=== PATIENT | male | born 1970 | race Asian ===

== ENCOUNTER 2021-06-17 00:09 | Day surgery (SDC) | payer OTHER, SELFPAY ==
[2021-06-16 09:58] VITALS: BMI 23.4
--- NOTE | 2021-06-17 10:11 | P.PNAN_ITS ---
Anes - Initial Pre Proc Eval Procedure: Operation Date: 06/17/21 11:30 Proposed Procedures p Screening Colonoscopy - Osbaldo Chinchilla MD Date/Time: 06/17/21 10:11 Surgeon: Osbaldo Chinchilla MD Pre Op Diagnosis: neoplasm screening Patient Data Age: 50 Gender: M Height: 1.63 m Weight: 62 kg Allergies Allergy/AdvReac Type Severity Reaction Status Date / Time lisinopril Allergy Intermediate Cough Verified 06/16/21 09:59 Home Medications Medication Instructions Recorded Confirmed Type Daily Fiber 5 cap PO DAILY 06/16/21 06/16/21 History Ginkoba 1 cap PO DAILY 06/16/21 06/16/21 History manisha (Zingiber officinalis) 2 cap PO DAILY 06/16/21 06/16/21 History ginseng 200 mg PO DAILY 06/16/21 06/16/21 History losartan 100 mg PO DAILY 06/16/21 06/16/21 History omega 4-ixb-egq-fish oil [Fish Oil] 2 cap PO DAILY 06/16/21 06/16/21 History sildenafil 100 mg PO PRN PRN 06/16/21 06/16/21 History Results Review: All pre-operative results and documents have been reviewed as part of the pre-operative evaluation. [facility] Past Medical History Medical History (Updated 06/17/21 @ 10:12 by Joesph Irby DO) Hypertension Social History Social History Smoking packs per day: 0.5 Smoking cigarettes per day: 10.0 Years smoked: 20 Smoking pack-years: 10.00 Smoking status: Former smoker Tobacco type: cigarettes Alcohol intake: current Drinks per week: 14 Alcohol use details: BEERS Substance use: never Substance use type: does not use Living arrangements: with family Spiritual care concerns: No Anes - Eval Final PreProcedure Day of Procedure 06/17/21 10:11 Patient weight: normal Heart: regular rate and rhythm Lungs: clear to auscultation and normal air movement Airway: Mallampati scale class II Neurological: alert and oriented Last oral intake: >/= 8 hours ASA classification: III Emergent: no Anesthetic plan: proceed Anesthesia type and monitoring: general GIVS and standard monitoring Results Review: All pre-operative results and documents have been reviewed as part of the pre-operative evaluation. Informed Consent: The patient's anesthetic plan and its attendant risks and benefits were discussed with the patient/family/POA. Questions were solicited and answers provided to the satisfaction of the patient/family/POA.
[2021-06-17 10:16] VITALS: BP 133/94; PULSE 84; RESP 18; TEMP 35.9; O2SAT 98
[2021-06-17] MEDS: LACTATED RINGERS 1,000 ML 150 ML IV CONT (10:20)
--- NOTE | 2021-06-17 10:30 | WPDGICN ---
Assessment and Plan Assessment and plan (1) Encounter for screening colonoscopy: Code(s): Z12.11 - Encounter for screening for malignant neoplasm of colon Status: Acute Assessment and Plan: Patient presents today for screening colonoscopy. Appears to be at average risk for colon polyps. High-fiber diet is advised because of history of emergence. GI Consult Note Consult date/time: 06/17/21 10:30 HPI: Rubio Arguelles is a 50 year old male Presents for screening colonoscopy. Patient reports his current weight appetite min bowel movements are normal. He denies abdominal pain. He has had no bleeding. Patient reports colonoscopy 15 years ago because of bleeding revealed that he had hemorrhoids. Patient has very infrequent bright red blood per rectum attributed to hemorrhoids. He reports that his bowel habits are normal. Family history is noncontributory. Patient presents today for neoplasia screening. Review of Systems Review of Systems: All systems reviewed & are unremarkable except as noted in HPI and below PMFSH Past Medical History Medical History (Updated 06/17/21 @ 10:31 by Osbaldo Chinchilla MD) Hypertension Social History Social History Smoking packs per day: 0.5 Smoking cigarettes per day: 10.0 Years smoked: 20 Smoking pack-years: 10.00 Smoking status: Former smoker Tobacco type: cigarettes Alcohol intake: current Drinks per week: 14 Alcohol use details: BEERS Substance use: never Substance use type: does not use Living arrangements: with family Spiritual care concerns: No Meds Home Medications and Allergies Home Medications Medication Instructions Recorded Confirmed Type Daily Fiber 5 cap PO DAILY 06/16/21 06/17/21 History Ginkoba 1 cap PO DAILY 06/16/21 06/17/21 History manisha (Zingiber officinalis) 2 cap PO DAILY 06/16/21 06/17/21 History ginseng 200 mg PO DAILY 06/16/21 06/17/21 History losartan 100 mg PO DAILY 06/16/21 06/17/21 History omega 1-bmj-sua-fish oil [Fish Oil] 2 cap PO DAILY 06/16/21 06/17/21 History sildenafil 100 mg PO PRN PRN 06/16/21 06/17/21 History Allergies Allergy/AdvReac Type Severity Reaction Status Date / Time lisinopril Allergy Intermediate Cough Verified 06/17/21 10:15 Vital Signs Vital Signs - 24 hr 06/17/21 10:16 Temperature 96.7 F L Pulse Rate 84 Respiratory Rate 18 Blood Pressure 133/94 H Pulse Oximetry 98 Exam Narrative: Physical exam reveals patient to be alert. Vital signs stable. HEENT exam is unremarkable. Patient is anicteric. Lungs are clear to auscultation and percussion. Heart is without murmur or extra sounds. Abdominal exam bowel sounds are present soft nontender with no organomegaly. Digital external rectal exam is normal.
--- NOTE | 2021-06-17 10:42 | P.PNAN_ITS ---
Anes - Initial Pre Proc Eval Procedure: Operation Date: 06/17/21 11:30 Proposed Procedures p Screening Colonoscopy - Osbaldo Chinchilla MD Date/Time: 06/17/21 10:42 Surgeon: Osbaldo Chinchilla MD Pre Op Diagnosis: neoplasm screening Patient Data Age: 50 Gender: M Height: 1.63 m Weight: 61.1 kg Last Vital Signs Temp 96.7 F L 06/17/21 10:16 Pulse 84 06/17/21 10:16 Resp 18 06/17/21 10:16 BP 133/94 H 06/17/21 10:16 Pulse Ox 98 06/17/21 10:16 Allergies Allergy/AdvReac Type Severity Reaction Status Date / Time lisinopril Allergy Intermediate Cough Verified 06/17/21 10:15 Home Medications Medication Instructions Recorded Confirmed Type Daily Fiber 5 cap PO DAILY 06/16/21 06/17/21 History Ginkoba 1 cap PO DAILY 06/16/21 06/17/21 History manisha (Zingiber officinalis) 2 cap PO DAILY 06/16/21 06/17/21 History ginseng 200 mg PO DAILY 06/16/21 06/17/21 History losartan 100 mg PO DAILY 06/16/21 06/17/21 History omega 5-yjt-vys-fish oil [Fish Oil] 2 cap PO DAILY 06/16/21 06/17/21 History sildenafil 100 mg PO PRN PRN 06/16/21 06/17/21 History Patient hx anesthesia problems: none Family hx anesthesia problems: none Results Review: All pre-operative results and documents have been reviewed as part of the pre-operative evaluation. [facility] Past Medical History Medical History (Updated 06/17/21 @ 10:31 by Osbaldo Chinchilla MD) Hypertension Social History Social History Smoking packs per day: 0.5 Smoking cigarettes per day: 10.0 Years smoked: 20 Smoking pack-years: 10.00 Smoking status: Former smoker Tobacco type: cigarettes Alcohol intake: current Drinks per week: 14 Alcohol use details: BEERS Substance use: never Substance use type: does not use Living arrangements: with family Spiritual care concerns: No Anes - Eval Final PreProcedure Day of Procedure 06/17/21 10:42 Patient weight: overweight Heart: regular rate and rhythm Lungs: clear to auscultation Airway: Mallampati scale Last oral intake: >/= 8 hours ASA classification: II Emergent: no Anesthetic plan: proceed Anesthesia type and monitoring: general GIVS and standard monitoring Results Review: All pre-operative results and documents have been reviewed as part of the pre-operative evaluation. Informed Consent: The patient's anesthetic plan and its attendant risks and benefits were discussed with the patient/family/POA. Questions were solicited and answers provided to the satisfaction of the patient/family/POA.
[2021-06-17 11:18] VITALS: BP 126/86; PULSE 94; RESP 17; O2SAT 98
[2021-06-17 11:28] VITALS: BP 135/97; PULSE 72; RESP 18; O2SAT 100
[2021-06-17 11:38] VITALS: BP 126/90; PULSE 70; RESP 17; O2SAT 100
== END 2021-06-17 11:43 | disposition home or self-care (01) ==
PROVIDERS: PCP Family Medicine; Visit Provider Internal Medicine Gastroenterology
PROC: 0DJD8ZZ Inspection of Lower Intestinal Tract, Via Natural or Artificial Opening Endoscopic (ICD-10-PCS; CPT 45378; principal; 2021-06-17 11:30)
DX: Z12.11 Encounter for screening for malignant neoplasm of colon (principal); K64.8 Other hemorrhoids; I10 Essential (primary) hypertension; Z87.891 Personal history of nicotine dependence
CPT/HCPCS: 45378; J2704; J7120